=== PATIENT | male | born 1985 | race Two or more races ===

== ENCOUNTER 2025-04-26 10:37 | Emergency (ER) | payer OTHER ==
[~2025-04-26] VITALS: Ht 177.8 cm; Wt 83.9 kg
[2025-04-26 12:14] LABS: APPEARANCE,URINE CLEAR (CLEAR); BLOOD, URINE NEGATIVE Ery/uL (NEGATIVE); LEUKOCYTE ESTERASE ,URINE NEGATIVE (NEGATIVE); NITRITE, URINE NEGATIVE (NEGATIVE); UGLUCOSE NEGATIVE (NEGATIVE)
[2025-04-26 13:14] VITALS: BP 120/74; TEMP 98.5; O2SAT 98
== END 2025-04-26 13:14 | disposition home or self-care (01) ==
LOC: ER 10:44
DX: N50.812 Left testicular pain (principal); N50.82 Scrotal pain; F25.9 Schizoaffective disorder, unspecified; F17.200 Nicotine dependence, unspecified, uncomplicated
CPT/HCPCS: 76870-TC